=== PATIENT | female | born 1990 | race Caucasian/White ===

== ENCOUNTER 2017-02-18 14:01 | Emergency (ER) | payer SELFPAY ==
[2017-02-18 14:13] VITALS: BP 110/68; PULSE 59; TEMP 97.9; BMI 26.7
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
[2017-02-18 15:13] LABS: URINE APPEARANCE CLEAR; URINE BILIRUBIN NEGATIVE (NEGATIVE); URINE BLOOD NEGATIVE (NEGATIVE); URINE COLOR LTYELLOW; URINE GLUCOSE (UA) NEGATIVE (NEGATIVE); URINE KETONE NEGATIVE (NEGATIVE); URINE LEUK ESTERASE NEGATIVE (NEGATIVE); URINE NITRITE NEGATIVE (NEGATIVE); URINE PROTEIN NEGATIVE (NEGATIVE); URINE UROBILINOGEN NEGATIVE mg/dL (0.2-1.0)
[2017-02-18] MEDS ORDERED: FLUCONAZOLE 50 MG TABLET PO ONE (15:26)
[2017-02-18] MEDS ORDERED: metroNIDAZOLE 250 MG TABLET PO ONE (15:27)
--- NOTE | 2017-02-18 15:27 | PDOC ---
Attending Attestation - Resident Resident Name: BenitotavoRon - ED Attending Attestation I have performed the following: I have examined & evaluated the patient, The case was reviewed & discussed with the resident, I agree w/resident's findings & plan, Exceptions are as noted - HPI HPI: 02/18/17 15:12 26 year old female patient with past medical history of PCO as presents with vaginal discharge and pelvic pain for 2 days. Several days ago, the patient was sexually active with her ex-boyfriend. There was no condom use. States unsure if patient's partner has history of sexually transmitted diseases and patient denies STDs herself. She started noticing a whitish discharge. Denies vaginal bleeding. Denies dysuria. Patient is requesting an HIV and a gonorrhea and chlamydia test. - Physicial Exam PE: 02/18/17 15:27 GENERAL: Awake, alert, and fully oriented, in no acute distress. HEAD: No signs of trauma EYES: PERRLA, EOMI, sclera anicteric, conjunctiva clear ENT: Auricles normal inspection, hearing grossly normal, nares patent, oropharynx clear without exudates. NECK: Normal ROM, supple, no lymphadenopathy, JVD, or masses LUNGS: Breath sounds equal, clear to auscultation bilaterally. No wheezes, and no crackles HEART: Regular rate and rhythm, normal S1 and S2, no murmurs, rubs or gallops ABDOMEN: Soft, nontender, normoactive bowel sounds. No guarding, no rebound. No masses RESEARCH CONSULTANT: milky and cottage cheese discharge. No blood. Cervical os closed. No CMT, no adnexal tenderness. EXTREMITIES: Normal range of motion, no edema. No clubbing or cyanosis. No cords, erythema, or tenderness NEUROLOGICAL: Cranial nerves II through XII grossly intact. Normal speech, normal gait SKIN: Warm, Dry, normal turgor, no rashes or lesions noted. 02/18/17 15:37 No evidence of bartholin cyst. - Medical Decision Making 02/18/17 15:32 Vital Signs Temp Pulse Resp BP Pulse Ox 97.9 F 59 L 18 110/68 100 02/18/17 14:08 02/18/17 14:08 02/18/17 14:08 02/18/17 14:08 02/18/17 14:08 26-year-old female with milky and cottage cheese like discharge. We'll treat as bacterial vaginosis and vaginal yeast infection. Urine prexy test negative. Urinalysis negative. We'll send an HIV and a gonorrhea and chlamydia. At this time, we will defer on giving ceftriaxone and azithromycin given that this is likely the bacterial vaginosis and vaginal yeast infection. We'll await an HIV test and once results return, patient will be discharged home. Urine Test Results Urine Color Ltyellow 02/18/17 15:08 Urine Appearance Clear 02/18/17 15:08 Urine pH 5.0 (5.0-8.0) 02/18/17 15:08 Urine Protein Negative (NEGATIVE) 02/18/17 15:08 Urine Glucose (UA) Negative (NEGATIVE) 02/18/17 15:08 Urine Ketones Negative (NEGATIVE) 02/18/17 15:08 Urine Blood Negative (NEGATIVE) 02/18/17 15:08 Urine Nitrite Negative (NEGATIVE) 02/18/17 15:08 Urine Bilirubin Negative (NEGATIVE) 02/18/17 15:08 Ur Leukocyte Esterase Negative (NEGATIVE) 02/18/17 15:08 02/18/17 15:37 Pt reports a "bump" on inner vulva on Left side, however, not cellulitis or bartholin cyst or abscess.
[2017-02-18] MEDS ORDERED: FLUCONAZOLE 100 MG TABLET (UD) ONE ×2 (15:42→15:45)
[2017-02-18] MEDS ORDERED: metroNIDAZOLE 250 MG TABLET ONE (15:42)
[2017-02-18 16:38] LABS: HIV 1 & 2 AB NEGATIVE; HIV 1 AGp24 NEGATIVE
== END 2017-02-18 17:30 | disposition home or self-care (01) ==
LOC: JER 14:01
DX: N76.0 Acute vaginitis (principal)
CPT/HCPCS: 36415; 81003; 84703; 87086; 87389; 87491; 87591; 99282-25

== ENCOUNTER 2017-05-03 13:20 | Emergency (ER) | payer SELFPAY ==
[2017-05-03 13:24] VITALS: BP 131/72; PULSE 67; TEMP 98.8; BMI 25.7
[2017-05-03 13:52] LABS: URINE APPEARANCE CLEAR; URINE BILIRUBIN NEGATIVE (NEGATIVE); URINE BLOOD NEGATIVE (NEGATIVE); URINE COLOR YELLOW; URINE GLUCOSE (UA) NEGATIVE (NEGATIVE); URINE KETONE NEGATIVE (NEGATIVE); URINE NITRITE NEGATIVE (NEGATIVE); URINE PROTEIN NEGATIVE (NEGATIVE); URINE UROBILINOGEN NEGATIVE mg/dL (0.2-1.0)
--- NOTE | 2017-05-03 14:32 | PDOC ---
History of Present Illness - General Chief Complaint: Urinary Problem Stated Complaint: URINARY DISCOMFORT Time Seen by Provider: 05/03/17 13:25 History Source: Patient Exam Limitations: No Limitations - History of Present Illness Initial Comments: 05/03/17 14:25 Patient is a 26 year old female, history of PCOS presents for vaginal discharge , discomfort, itching and patient reports foul odor when urinating. Allergies: No known allergies Medications: None Family History: Non-contributory Social History: Denies smoking, alcohol use, or IVDU Review of Systems GENERAL/CONSTITUTIONAL: No fever or chills. No weakness. No weight change. HEAD, EYES, EARS, NOSE AND THROAT: No change in vision. No ear pain or discharge. No sore throat. CARDIOVASCULAR: No chest pain or shortness of breath. RESPIRATORY: No cough, wheezing, or hemoptysis. GASTROINTESTINAL: No nausea, vomiting, diarrhea or constipation. No rectal bleeding. GENITOURINARY: No dysuria, frequency, or change in urination. GENITALIA: Garces vaginal discharge, irritation to labia, foul odor when urinating MUSCULOSKELETAL: No joint or muscle swelling or pain. No neck or back pain. SKIN AND BREASTS: No rash or easy bruising. NEUROLOGIC: No headache, vertigo, loss of consciousness, or loss of sensation. PSYCHIATRIC: No depression or anxiety. ENDOCRINE: No increased thirst. No abnormal weight change. HEMATOLOGIC/LYMPHATIC: No anemia, easy bleeding, or history of blood clots. ALLERGIC/IMMUNOLOGIC: No hives or skin allergy. No latex allergy. Physical Exam: GENERAL: The patient is awake, alert, and fully oriented, in no acute distress. HEAD: Normal with no signs of trauma. EYES: Pupils equal, round and reactive to light, extraocular movements intact, sclera anicteric, conjunctiva clear. ENT: Ears normal, nares patent, oropharynx clear without exudates. Moist mucous membranes. No uvula deviation NECK: Normal range of motion, supple without lymphadenopathy, JVD, or masses. LUNGS: Breath sounds equal, clear to auscultation bilaterally. No wheezes, and no crackles. HEART: Regular rate and rhythm, normal S1 and S2 without murmur, rub or gallop. ABDOMEN: Soft, nontender, normoactive bowel sounds. No guarding, no rebound. No masses. No bruising or abrasions GENITALIA: Malodorous Discharge, garces and thick white, cervix is closed, nonfriable. MUSCULOSKELETAL: Normal range of motion, no edema. No clubbing or cyanosis. No cords, erythema, or tenderness. No CVA Tenderness with fist. NEUROLOGICAL: Cranial nerves II through XII grossly intact. Normal speech, normal gait. SKIN: Warm, Dry, normal turgor, no rashes or lesions noted. 05/03/17 15:13 Past History - Past Medical History Allergies/Adverse Reactions: Allergies Allergy/AdvReac Type Severity Reaction Status Date / Time No Known Allergies Allergy Verified 05/03/17 13:24 Home Medications: Ambulatory Orders Fluconazole [Diflucan] 150 mg PO ONCE #1 tablet 05/03/17 Metronidazole 0.75% Gel [Metrogel 0.75% Gel -] 1 applic TP DAILY #1 tube Other medical history: NONE - Surgical History Abdominal Surgery: Yes (UMBILICAL HERNIA) - Immunization History Immunization Up to Date: Yes - Suicide/Smoking/Psychosocial Hx Smoking History: Never smoked Hx Alcohol Use: Yes (SOCIAL) Drug/Substance Use Hx: No Substance Use Type: None *Physical Exam - Vital Signs Last Vital Signs Temp Pulse Resp BP Pulse Ox 98.8 F 67 20 131/72 98 05/03/17 13:21 05/03/17 13:21 05/03/17 13:21 05/03/17 13:21 05/03/17 13:21 ED Treatment Course - ADDITIONAL ORDERS Additional order review: Laboratory Results 05/03/17 13:40 Urine Color Yellow Urine Appearance Clear Urine pH 6.0 Urine Protein Negative Urine Glucose (UA) Negative Urine Ketones Negative Urine Blood Negative Urine Nitrite Negative Urine Bilirubin Negative Urine Urobilinogen Negative Urine HCG, Qual Negative Medical Decision Making - Medical Decision Making 05/03/17 15:16 A/P: Patient here for evaluation of vaginal discharge and irritation to external labia. Patient with clinical signs of bacterial vaginosis will discharge patient on Diflucan and MetroGel follow-up with [facility] ANALYST Vaginal culture and gonorrhea Chlamydia sent, urinalysis performed and reviewed and unremarkable. Laboratory Results - last 24 hr 05/03/17 13:40 Urine Color Yellow Urine Appearance Clear Urine pH 6.0 Urine Protein Negative Urine Glucose (UA) Negative Urine Ketones Negative Urine Blood Negative Urine Nitrite Negative Urine Bilirubin Negative Urine Urobilinogen Negative Urine HCG, Qual Negative I discussed the physical exam findings, ancillary test results and final diagnoses with the patient. I answered all of the patient's questions. The patient was satisfied with the care received and felt comfortable with the discharge plan and treatment plan. The patient will call to arrange follow-up and will return to the Emergency Department with any new, persisting or worsening symptoms. *DC/Admit/Observation/Transfer Diagnosis at time of Disposition: Vaginosis - Discharge Dispostion Disposition: HOME Condition at time of disposition: Good Admit: No - Prescriptions Prescriptions: Fluconazole [Diflucan] 150 mg PO ONCE #1 tablet Metronidazole 0.75% Gel [Metrogel 0.75% Gel -] 1 applic TP DAILY #1 tube - Referrals Referrals: [facility] [Provider Group] - Patient Instructions Printed Discharge Instructions: DI for Bacterial Vaginosis Additional Instructions: Medication as prescribed Refrain from sexual activity for at least two weeks. Follow up with TABLEAU ANALYST. - Post Discharge Activity Forms/Work/School Notes: Back to Work
[2017-05-03 17:19] LABS: URINE LEUK ESTERASE 1+ (NEGATIVE)
[2017-05-03 18:44] LABS: URINE BACTERIA MANY /hpf (NEGATIVE); URINE RBC 0-2 /hpf (0-3)
--- NOTE | 2017-05-05 17:08 | PDOC ---
Patient Follow-up (Call Back) - Post ED Follow - Up Condition at time of discharge: Good Disposition at time of original discharge: HOME Reason for Call Back: Abnwl. Microbiology (Urine cultures showed Escherichia coli which can be treated with Macrobid. Patient also with negative findings for gonorrhea and chlamydia. Patient's prescription was sent to [facility]. Pt states will pick up worker med tonight.)
--- NOTE | 2017-05-06 07:04 | PDOC ---
Patient Follow-up (Call Back) - Post ED Follow - Up Condition at time of discharge: Good Disposition at time of original discharge: HOME Reason for Call Back: Abnwl. Microbiology (Gram stain final report Many gram- positive cocci in clusters, many gram-positive cocci in chains, many grams positive bacilli, many in pairs gram-negative diplococci. Patient placed on Macrobid last evening for UTI. Called patient and states she needs to follow-up with her MECHANIC RECOVERY after completion of Macrobid for retesting)
== END 2017-05-03 14:54 | disposition home or self-care (01) ==
LOC: JERFT 13:20
DX: N76.0 Acute vaginitis (principal); B96.20 Unspecified Escherichia coli [E. coli] as the cause of diseases classified elsewhere
CPT/HCPCS: 36415; 81003; 81015; 84703; 87070; 87086; 87186; 87205; 87491; 87591; 99281-25

== ENCOUNTER 2018-06-05 14:49 | Emergency (ER) | payer BC ==
[2018-06-05 14:55] VITALS: BMI 26.5
--- NOTE | 2018-06-05 14:57 | PDOC ---
Rapid Medical Evaluation Chief Complaint: Pain Time Seen by Provider: 06/05/18 14:53 Medical Evaluation: Allergies Allergy/AdvReac Type Severity Reaction Status Date / Time No Known Allergies Allergy Verified 05/03/17 13:24 06/05/18 14:54 Pt c/o: rt suprapubic sharp constant worse w/ movement x 2 days, no urinary or vag c/o, hx PCOS, went to clinic [facility], - UA, preg pt on brief exam: no rlq pain, vss, Pt order for: ua , upreg, cbc, comp, trans vag u/s pt to proceed to the ED Discharge Disposition - Diagnosis Suprapubic pain - Referrals - Patient Instructions - Post Discharge Activity
[2018-06-05 16:01] LABS: EOS % 1.3 % (0-4.5); HEMATOCRIT 38.9 % (32.4-45.2); HEMOGLOBIN 12.8 GM/dL (10.7-15.3); LYMPH % 33.9 % (8-40); MCH 29.2 pg (25.7-33.7); MEAN CELL VOLUME 88.5 fl (80-96); MEAN PLT VOLUME 7.9 fl (7.5-11.1); MONO % 7.5 % (3.8-10.2); NEUT % 56.3 % (42.8-82.8); PLATELET COUNT 242 K/MM3 (134-434); RBC 4.39 M/mm3 (3.60-5.2); RDW 14.2 % (11.6-15.6); WHITE BLOOD COUNT 8.4 K/mm3 (4.0-10.0)
--- NOTE | 2018-06-05 16:01 | PDOC ---
History of Present Illness - General Chief Complaint: Pain Stated Complaint: PELVIC PAIN Time Seen by Provider: 06/05/18 14:53 History Source: Patient Exam Limitations: Clinical Condition - History of Present Illness Initial Comments: 06/05/18 16:05 Patient with h/o PCOS not on meds present with complains of right pelvic pain for 2 days. patient report LMP 10 and report irregular menstrual periods. Patient was seen in an urgent care today for symptoms and sent for pelvic ultrasound patient report sexually active with 1 partner and does not always use condoms. patient denies any control use. Denies fever, chills, N/V, vaginal discharge or bleeding. Pt request STI testing Timing/Duration: other (2 days) Past History - Past Medical History Allergies/Adverse Reactions: Allergies Allergy/AdvReac Type Severity Reaction Status Date / Time No Known Allergies Allergy Verified 06/05/18 14:55 Home Medications: Ambulatory Orders Fluconazole [Diflucan] 150 mg PO ONCE #1 tablet 05/03/17 metroNIDAZOLE 0.75% GEL [Metrogel 0.75% Gel -] 1 applic TP DAILY #1 tube Nitrofurantoin Monohyd/M-Cryst [Macrobid -] 100 mg PO BID #14 capsule 05/05/17 Ibuprofen 600 mg PO Q8H PRN #20 tablet 06/05/18 Polyethylene Glycol 3350 [Miralax (For Bowel Prep) -] 17 gm PO DAILY #1 bottle 06/05/18 metroNIDAZOLE [Flagyl -] 500 mg PO DAILY #14 tablet 06/05/18 COPD: No Other medical history: PCOS - Surgical History Abdominal Surgery: Yes (UMBILICAL HERNIA) - Immunization History Immunization Up to Date: Yes - Suicide/Smoking/Psychosocial Hx Smoking History: Never smoked Have you smoked in the past 12 months: No Information on smoking cessation initiated: No Hx Alcohol Use: No Drug/Substance Use Hx: No Substance Use Type: None Review of Systems - Review of Systems Able to Perform ROS?: Yes Is the patient limited Japanese proficient: No Constitutional: No: See HPI, Fever, Malaise HEENTM: No: Symptoms Reported Respiratory: No: Symptoms reported, See HPI, Cough, Orthopnea, Shortness of Breath, SOB with Exertion, SOB at Rest, Stridor, Wheezing, Productive cough, Hemoptysis, Other Cardiac (ROS): No: Symptoms Reported, See HPI, Chest Pain, Edema, Irregular Heart Rate, Lightheadedness, Palpitations, Syncope, Chest Tightness, Other ABD/GI: No: Symptoms Reported, See HPI, Abdominal Distended, Abd. Pain w/ defecation, Blood Streaked Bowels, Constipated, Diarrhea, Difficulty Swallowing , Nausea, Poor Appetite, Poor Fluid Intake, Rectal Bleeding, Vomiting, Indigestion, Abdominal cramping, Tarry Stools, Other : Yes: See HPI, Pain (right pelvic). No: Burning, Dysuria, Discharge, Frequency, Flank Pain, Hematuria, Incontinence, Urgency Musculoskeletal: No: Symptoms Reported, See HPI, Back Pain, Gout, Joint Pain, Joint Swelling, Muscle Pain, Muscle Weakness, Neck Pain, Joint Stiffness, Other All Other Systems: Reviewed and Negative *Physical Exam - Vital Signs Last Vital Signs Temp Pulse Resp BP Pulse Ox 98.1 F 60 16 119/56 L 100 06/05/18 14:53 06/05/18 14:53 06/05/18 14:53 06/05/18 14:53 06/05/18 14:53 - Physical Exam General Appearance: Yes: Nourished, Appropriately Dressed. No: Apparent Distress HEENT: positive: Normal ENT Inspection Neck: positive: Supple Respiratory/Chest: positive: Lungs Clear. negative: Chest Tender, Respiratory Distress, Accessory Muscle Use Cardiovascular: positive: Regular Rhythm, Regular Rate. negative: Murmur Female Pelvic Exam: positive: normal external exam, cervical os closed, CMT ( mild right CMT), other (moderate amount of light yellow non-malodorous discharge in vaginal vault. no visible lesions. no blood in vault). negative: vaginal bleeding Gastrointestinal/Abdominal: positive: Normal Bowel Sounds, Flat, Soft. negative : Tender, Organomegaly, Pulsatile Mass Musculoskeletal: positive: Normal Inspection. negative: CVA Tenderness Integumentary: positive: Normal Color Neurologic: positive: Fully Oriented, Alert, Normal Mood/Affect Moderate Sedation - Procedure Monitoring Vital Signs: Procedure Monitoring Vital Signs Temperature 98.1 F 06/05/18 14:53 Pulse Rate 60 06/05/18 14:53 Respiratory Rate 16 06/05/18 14:53 Blood Pressure 119/56 L 06/05/18 14:53 O2 Sat by Pulse Oximetry (%) 100 06/05/18 14:53 ED Treatment Course - LABORATORY CBC & Chemistry Diagram: 06/05/18 15:40 06/05/18 15:40 Medical Decision Making - Medical Decision Making 06/05/18 16:11 Patient with h/o PCOS and irregular menstrual period present with complains of 2 days h/o right pelvic pain with no other symptoms. exam significant for moderate non-malodorous vaginal d/c with mild right CMT culture of vaginal d/c ordered. CBC,CMP, HIV/RPR/GC/CHL testing ordered. UA. UCx ordered. pelvic ultrasound ordered. patient will be treated emperically with ceftriaxone and azithro due to vaginal d/c with CMT 06/05/18 17:24 CMB,CMP labs unremarkable. pelvic ultrasound still pending. pt unable to given urine sample yet. beta hcg neg. pt will be treated with ceftriaxone and azithromycin after urine collection and discharge home on flagyl to cover BV due to vaginal discharge 06/05/18 17:50 Pelvic ultrasound unremarkable. HIV testing still pending 06/05/18 18:27 ceftriaxone 250mg IM and azithromycin 1g PO given. urine labs sent 06/05/18 19:00 HIV negative. pt report h/o constipation and request meds for constipation. patient stable for discharge *DC/Admit/Observation/Transfer Diagnosis at time of Disposition: Pelvic pain Vaginitis Qualifiers: Chronicity: acute Qualified Code(s): N76.0 - Acute vaginitis Constipation Qualifiers: Constipation type: unspecified constipation type Qualified Code(s): K59.00 - Constipation, unspecified - Discharge Dispostion Disposition: HOME Condition at time of disposition: Stable Decision to Admit order: No - Prescriptions Prescriptions: Ibuprofen 600 mg PO Q8H PRN #20 tablet PRN Reason: pain metroNIDAZOLE [Flagyl -] 500 mg PO DAILY #14 tablet Polyethylene Glycol 3350 [Miralax (For Bowel Prep) -] 17 gm PO DAILY #1 bottle - Referrals Referrals: Phu Mobley MD [Primary Care Provider] - - Patient Instructions Printed Discharge Instructions: Pelvic Inflammatory Disease, DI for Pelvic Pain Additional Instructions: your labs was normal. your HIV was negative. you will be contacted with rest of STD testing labs. take medications as prescribed. follow-up with [facility]IE[facility] - Post Discharge Activity
--- NOTE | 2018-06-05 16:29 | PDOC ---
*Physical Exam - Vital Signs Last Vital Signs Temp Pulse Resp BP Pulse Ox 98.1 F 60 16 119/56 L 100 06/05/18 14:53 06/05/18 14:53 06/05/18 14:53 06/05/18 14:53 06/05/18 14:53 - Physical Exam Comments: 06/05/18 16:27 abd soft/nd. pelvic per pa with CMT and slight discharge ED Treatment Course - LABORATORY CBC & Chemistry Diagram: 06/05/18 15:40 06/05/18 15:40 - ADDITIONAL ORDERS Additional order review: 06/05/18 15:40 RBC 4.39 MCV 88.5 MCHC 33.0 RDW 14.2 MPV 7.9 Neutrophils % 56.3 Lymphocytes % 33.9 Monocytes % 7.5 Eosinophils % 1.3 Basophils % 1.0 Medical Decision Making - Medical Decision Making 06/05/18 16:27 27y/o F with pelvic pain and vaginal discharge. labs, urine preg gc/chl and STI workup sent including HIV TVUS dispo accordingly *DC/Admit/Observation/Transfer Diagnosis at time of Disposition: Suprapubic pain - Referrals Referrals: Phu Mobley MD [Primary Care Provider] - - Patient Instructions - Post Discharge Activity
[2018-06-05 16:30] LABS: ALBUMIN 3.7 g/dl (3.4-5.0); ALK PHOS 68 U/L (45-117); ANION GAP 6 MMOL/L (8-16); BILIRUBIN,TOTAL 0.4 mg/dL (0.2-1); BLOOD UREA NITROGEN 14 mg/dL (7-18); CALCIUM 8.8 mg/dL (8.5-10.1); CHLORIDE 104 mmol/L (98-107); CO2 28 mmol/L (21-32); CREATININE 0.6 mg/dL (0.55-1.3); GLUCOSE,RANDOM 82 mg/dL (74-106); POTASSIUM 4.2 mmol/L (3.5-5.1); SGOT/AST 20 U/L (15-37); SGPT/ALT 28 U/L (13-61); SODIUM 138 mmol/L (136-145); TOT PROT 7.1 g/dl (6.4-8.2)
[2018-06-05] MEDS ORDERED: AZITHROMYCIN 500 MG TABLET PO ONE (17:28)
[2018-06-05] MEDS ORDERED: AZITHROMYCIN 500 MG TABLET ONE (17:43)
[2018-06-05] MEDS ORDERED: cefTRIAXone SODIUM 1 GM VIAL ONE (17:44)
[2018-06-05 17:55] VITALS: BP 116/77; PULSE 66; TEMP 98.3
[2018-06-05 19:17] LABS: URINE APPEARANCE CLEAR; URINE BILIRUBIN NEGATIVE (<2.0 mg/dL); URINE COLOR STRAW; URINE GLUCOSE (UA) NEGATIVE (NEGATIVE); URINE KETONE NEGATIVE (NEGATIVE); URINE LEUK ESTERASE NEGATIVE (NEGATIVE); URINE NITRITE NEGATIVE (NEGATIVE); URINE PROTEIN NEGATIVE (NEGATIVE); URINE UROBILINOGEN NEGATIVE mg/dL (0.2-1.0)
[2018-06-05 19:18] LABS: HCG,QUALITATIVE URINE Negative
== END 2018-06-05 19:16 | disposition home or self-care (01) ==
LOC: JER 14:49
DX: N76.0 Acute vaginitis (principal); K59.00 Constipation, unspecified
CPT/HCPCS: 36415; 76830-TC; 80053; 81003; 84702; 84703; 85025; 86593; 87389; 87491; 87591; 87661; 99281-25